=== PATIENT | male | born 1955 | race Caucasian/White ===

== ENCOUNTER 2016-03-30 11:59 | Emergency (ER) | payer OTHER ==
[~2016-03-30] VITALS: Ht 167.6 cm; Wt 73.0 kg
[~2016-03-30 11:59] MED LIST: ASPIRIN81 M1 PO; BENTYL20 M1 PO; CRESTOR5 MG PO; FLOVENT HF0.044 MG/A INH; KEFLEX500 MG PO; LIDEX0.05 %/15 TOP; SINGULAIR10 MG PO; [UNRECOGNIZED DRUG - OTHER] TOP
--- NOTE | 2016-03-30 13:37 | ED GI/GU/ABDOMINAL COMPLAINT ---
History of Present Illness General Chief Complaint: Abdominal Pain/Flank Pain Stated Complaint: ABD PAIN Source: patient, old records, friend Exam Limitations: no limitations Vital Signs & Intake/Output Vital Signs & Intake/Output Vital Signs Date Time Temp Pulse Resp B/P Pulse O2 O2 Flow FiO2 Ox Delivery Rate 03/30 1450 98.7 59 20 113/77 96 Room Air 03/30 1437 99 Room Air 03/30 1210 97.8 75 18 160/92 100 Room Air Allergies Coded Allergies: MDX - Budesonide (From SYMBICORT) (NAUSEA 01/13/15) MDX - Formoterol (From SYMBICORT) (NAUSEA 01/13/15) latex (Intermediate, ITCHING 08/21/15) Reconcile Medications Aspirin 81 MG CTB 81 MG PO THU,Thu (Reported) Cephalexin (Keflex) 500 MG CAP 1 TAB PO Q6 CELLULITIS Desoximetasone (Topicort Cm 0.25% (15GM)) 15 GM CRM 0.05 % TOP DAILY PSORIASIS (Reported) Dicyclomine HCl (Bentyl) 20 MG TABLET 1 TAB PO Q6H PRN ABDOMINAL PAIN Fluocinonide (Lidex) 0.05 %/15 GM CRM 0.05 % TOP DAILY PSORIASIS (Reported) Fluticasone Propionate (Flovent Hfa) 0.044 MG/Actuation EVELIA 1 PUFF INH BID ASTHMA (Reported) Montelukast Sodium (Singulair) 10 MG TAB 1 TAB PO DAILY ALLERGIES (Reported) Rosuvastatin Calcium (Crestor) 5 MG TAB 1 TAB PO DAILY CHOLESTEROL (Reported) Triage Note: PT TO ED FOR ABD PAIN AFTER EATING SINCE YESTERDAY, TOOK "LICORICE PILLS THAT MIGHT SMT TECHNICIAN GAVE ME". PT REPORTING HE IS "FEELING OK NOW BECAUSE MY STOMACH IS EMPTY." DESCRIBES PAIN GNAWING, DENIES BLACK OR TARRY STOOLS, INTERMITTENT NAUSEA, DENIES VOMITING, DENIES URINARY S/S. LNBM LAST NIGHT. Triage Nurses Notes Reviewed? yes Onset: 3 days Duration: day(s):, changing over time, continues in ED, intermittent Timing: recent history Quality/Severity: cramping, moderate Location: epigastric Radiation: no radiation Activities at Onset: none Prior Abdominal Problems: similar symptoms Past Sexual History: Unobtainable at this time Modifying Factors: Worsens With: eating. HPI: 8 months prior to admission patient decided to proceed with [facility] and recommendations. He change his diet and was able to stop cholesterol and ulcer medication. 3 days prior to admission he complains of nausea epigastric pain worse after eating waking him from sleep nonradiating moderate to severe associated with decreased appetite. He denies fever chills nausea vomiting chest pain cough shortness of breath headache dysuria rash bleeding. Past History Travel History Traveled to [facility] past 21 day No Medical History Any Pertinent Medical History? 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: NONE Other Medical Hx: enlarged prostate, Psoriasis History of MRSA: No History of VRE: No History of CDIFF: No Surgical History Surgical History: knee replacement, BILATERAL INGUINAL HERNIA REPAIR IN october 2014 AT [facility] Psychosocial History Who do you live with Patient/Self Services at Home None What is your primary language Martiniquais Tobacco Use: Never used ETOH Use: occasional use Illicit Drug Use: denies illicit drug use Family History Family History, If Any: FATHER FATHER MOTHER Relation not specified for: FH: heart disease FH: heart failure FHx: lung cancer Hx Contributory? No Review of Systems Review of Systems Constitutional: Reports: no symptoms. EENTM: Reports: no symptoms. Respiratory: Reports: no symptoms. Cardiovascular: Reports: no symptoms. GI: Reports: see HPI, abdominal pain. Genitourinary: Reports: no symptoms. Musculoskeletal: Reports: no symptoms. Skin: Reports: no symptoms. Neurological/Psychological: Reports: no symptoms. Hematologic/Endocrine: Reports: no symptoms. Immunologic/Allergic: Reports: no symptoms. All Other Systems: Reviewed and Negative Physical Exam Physical Exam General Appearance: well developed/nourished, alert, awake, anxious, moderate distress Head: atraumatic, normal appearance Eyes: Bilateral: normal appearance, PERRL, EOMI, normal inspection. Ears, Nose, Throat, Mouth: hearing grossly normal, moist mucous membrane Neck: normal inspection, supple, full range of motion, normal alignment Respiratory: normal breath sounds, chest non-tender, no respiratory distress, quiet respiration, lungs clear Cardiovascular: regular rate/rhythm, normal peripheral pulses, norml femoral pulses equa Peripheral Pulses: 4+ carotid (R), 4+ carotid (L) Gastrointestinal: normal bowel sounds, soft, non-tender, no organomegaly Rectal: deferred (refused) Male Genitals: normal genitalia Back: normal inspection, normal range of motion Extremities: normal range of motion, no ligament instability Neurologic/Psych: no motor/sensory deficits, awake, alert, oriented x 3, normal gait, normal mood/affect, handle sewer II-XII nml as tested Skin: intact, normal color, warm/dry Core Measures ACS in differential dx? Yes Severe Sepsis Present: No Septic Shock Present: No Progress Differential Diagnosis: biliary colic, gastritis, pancreatitis, peptic ulcer, PUD/GERD Plan of Care: Orders Procedure Date/time Status TROPONIN LEVEL 03/30 1324 Complete MAGNESIUM 03/30 1324 Complete LIPASE 03/30 1324 Complete COMPREHENSIVE METABOLIC PANEL 03/30 1324 Complete CBC WITHOUT DIFFERENTIAL 03/30 1324 Complete EKG 03/30 1324 Active Laboratory Tests 03/30/16 1423: Anion Gap 13, Estimated GFR > 60, BUN/Creatinine Ratio 20.0, Glucose 78, Calcium 9.7, Magnesium 2.1, Total Bilirubin 1.3, AST 24, ALT 27, Alkaline Phosphatase 105, Troponin I < 0.01, Total Protein 7.3, Albumin 4.5, Globulin 2.8, Albumin/ Globulin Ratio 1.6, Lipase 95, CBC w Diff NO MAN DIFF REQ, RBC 5.51, MCV 91.0, MCH 30.9, RDW 12.4, MPV 8.5, Gran % 72.0, Lymphocytes % 17.8 L, Monocytes % 8.0 , Eosinophils % 1.5, Basophils % 0.7, Absolute Granulocytes 4.2, Absolute Lymphocytes 1.0 L, Absolute Monocytes 0.5, Absolute Eosinophils 0.1, Absolute Basophils 0, PUBS MCHC 33.9 Initial ED EKG: normal axis, normal intervals, normal p-waves, normal QRS complex, normal sinus rhythm, nonspecific ST T wave chg Prior EKG: unchanged Rhythm Strip: normal sinus rhythm Departure Departure Time of Disposition: 1544 Disposition: HOME OR SELF CARE Condition: Stable Clinical Impression Primary Impression: Gastritis and duodenitis Referrals: KINGS DOWNEY,NINA Esposito (PCP/Family) Departure Forms: Customer Survey General Discharge Information Prescriptions: Current Visit Scripts Famotidine (Pepcid) 1 TAB PO BID #60 TAB Ref 1 Metoclopramide HCl (Reglan) 1 TAB PO Q6P PRN nausea #30 TAB Hyoscyamine Sulfate (Levsin-Sl) 1-2 TAB SL Q4P PRN abdominal cramps #30 TAB [Magic mouthwash] 5-10 ML PO Q6P PRN abd cramps #270 ML maalox, viscous lidocaine, benadyrl 1:1:!
[2016-03-30 14:33] LABS: ABSOLUTE BASOPHIL COUNT 0 /CUMM (0.0-0.2); ABSOLUTE EOSINOPHIL COUNT 0.1 /CUMM (0.0-0.7); ABSOLUTE GRANULOCYTE CT 4.2 /CUMM (1.4-6.5); ABSOLUTE MONOCYTE COUNT 0.5 /CUMM (0.10-0.60); BASOPHIL % 0.7 % (0.0-2.0); EOSINOPHIL % 1.5 % (0-5); HEMATOCRIT 50.2 % (42-52); MEAN CORPUSCULAR HGB 30.9 PG (27.0-31.0); MEAN CORPUSCULAR HGB CONC 33.9 G/DL (33.0-37.0); MEAN PLATELET VOLUME 8.5 FL (7.4-10.4); PLATELET COUNT 187 /CUMM (130-400); RBC DISTRIBUTION WIDTH 12.4 % (11.5-14.5); RED BLOOD CELL CT 5.51 /CUMM (4.70-6.10); WHITE BLOOD CELL COUNT 5.8 /CUMM (4.8-10.8)
[2016-03-30] MEDS ORDERED: REGLAN5 M1 PO (15:49)
[2016-03-30] MEDS ORDERED: PEPCID20 M1 PO (15:49)
[2016-03-30] MEDS ORDERED: Magic mouthwash PO (15:49)
[2016-03-30] MEDS ORDERED: LEVSIN-SL0.125 MG SL (15:49)
[2016-03-30 16:02] VITALS: BP 122/80
== END 2016-03-30 16:18 ==
LOC: ERH 11:59
PROVIDERS: Emergency Medicine
DX: K29.70 Gastritis, unspecified, without bleeding (principal); K29.80 Duodenitis without bleeding
CPT/HCPCS: 93005; 93010; 96361; 96374; 96375; J2765